=== PATIENT | female | born 1980 | race Caucasian/White ===

== ENCOUNTER 2017-04-17 08:34 | Day surgery (SDC) | payer MEDICAID ==
[2017-04-17] MEDS ORDERED: SODIUM CHLORIDE 0.9% 1,000 ML IV ONE ×4 (08:50→13:30)
[2017-04-17] MEDS ORDERED: ONDANSETRON 4 MG/2 ML VIAL IVP STA (08:50)
[2017-04-17] MEDS ORDERED: PANTOPRAZOLE 40 MG VIAL IVP STA (08:50)
--- NOTE | 2017-04-17 09:07 | ED Physician Documentation ---
History of Present Illness - Stated complaint Stated Complaint: NAUSEA,VOMITTING W/BLOOD,ABD PX - Chief complaint Chief Complaint: Abd Pain - History obtained from History obtained from: Patient - History of Present Illness Timing: Last night Improved by: nothing Worsened by: eating - Additonal information Additional information: States sudden onset of vomiting last night. Started upper abdomen and has moved to the lower abdomen. States pink tinge to vomit last night. States history of gastritis and was on omeprazole, but made her lightheaded, so she stopped it. Had diarrhea 2 days ago. no BM since. no abd surgeries. no possibility of . Review of Systems Ten Systems: 10 systems reviewed and negative Constitutional: reports: Fever (subjective last night) Nose: reports: Rhinorrhea / runny nose, Congestion Throat: denies: Sore throat Cardiac: denies: Chest pain / pressure Respiratory: reports: Cough (mild, dry) GI: reports: Nausea, Vomiting, Diarrhea Skin: denies: Rash Musculoskeletal: denies: Neck pain, Back pain Neurologic: denies: Focal weakness, Numbness, Headache PD PAST MEDICAL HISTORY - Past Medical History Past Medical History: Yes GI: GERD Psych: Depression - Present Medications Home Medications: Ambulatory Orders Medication Instructions Recorded Confirmed ARIPiprazole [Abilify] 5 mg PO DAILY 04/17/17 04/17/17 Acetaminophen [Tylenol Extra 500 mg PO Q4H PRN 04/17/17 04/17/17 Strength] Calcium Carbonate [Tums (Calcium 500 - 1,000 mg PO Q4H PRN 04/17/17 04/17/17 Carbonate 500mg)] Ibuprofen [Motrin] 400 mg PO Q6H PRN 04/17/17 04/17/17 Sertraline [Zoloft] 50 mg PO DAILY 04/17/17 04/17/17 - Allergies Allergies/Adverse Reactions: Allergies Allergy/AdvReac Type Severity Reaction Status Date / Time omeprazole [From Prilosec] AdvReac Intermediate Dizziness Verified 04/17/17 12: 40 - Social History Does the pt smoke?: No Smoking Status: Never smoker PD ED PE NORMAL - Vitals Vital signs reviewed: Yes - General General: Alert and oriented X 3, No acute distress, Well developed/nourished - HEENT HEENT: Moist mucous membranes - Neck Neck: Supple, no meningeal sign - Cardiac Cardiac: RRR - Respiratory Respiratory: No respiratory distress, Clear bilaterally - Abdomen Abdomen: Soft, Other (TTP RLQ at mcburney's point. + rebound and guarding. ) - Back Back: No CVA TTP, No spinal TTP - Derm Derm: Warm and dry - Neuro Neuro: Alert and oriented X 3 - Psych Psych: Normal mood, Normal affect Results - Vitals Vitals: Vital Signs - 24 hr 04/17/17 04/17/17 04/17/17 08:46 11:30 14:23 Temperature 37.2 C 37.1 C Heart Rate 102 H 87 Respiratory 14 16 Rate Blood Pressure 110/75 100/58 L Blood Pressure [Left Brachial artery] O2 Saturation 100 100 100 04/17/17 04/17/17 04/17/17 14:30 14:35 14:40 Temperature Heart Rate Respiratory Rate Blood Pressure Blood Pressure [Left Brachial artery] O2 Saturation 98 100 100 04/17/17 04/17/17 04/17/17 14:45 15:01 15:10 Temperature 36.7 C Heart Rate 85 Respiratory 16 Rate Blood Pressure Blood Pressure 125/52 L [Left Brachial artery] O2 Saturation 98 10 L 100 Oxygen O2 Source Room air - Labs Labs: Laboratory Tests 04/17/17 04/17/17 04/17/17 08:59 08:59 08:59 WBC 12.3 H RBC 4.25 Hgb 12.9 Hct 38.7 MCV 91.0 MCH 30.5 MCHC 33.5 RDW 12.6 Plt Count 261 MPV 7.5 L Neut # 9.9 H Lymph # 1.6 [place] # 0.7 Eos # 0.0 Baso # 0.0 Absolute Nucleated RBC 0.00 Nucleated RBC % 0.0 PT 12.5 INR 1.1 APTT 25.8 Sodium 136 Potassium 3.5 Chloride 101 Carbon Dioxide 26 Anion Gap 9.0 BUN 10 Creatinine 0.7 Estimated GFR (MDRD) 94 Glucose 111 H Calcium 9.4 Total Bilirubin 0.7 AST 17 ALT 11 Alkaline Phosphatase 40 L Total Protein 8.3 H Albumin 4.8 Globulin 3.5 Albumin/Globulin Ratio 1.4 Lipase 21 L Serum HCG, Qual Blood Type Antibody Screen 04/17/17 04/17/17 09:09 09:09 WBC RBC Hgb Hct MCV MCH MCHC RDW Plt Count MPV Neut # Lymph # [place] # Eos # Baso # Absolute Nucleated RBC Nucleated RBC % PT INR APTT Sodium Potassium Chloride Carbon Dioxide Anion Gap BUN Creatinine Estimated GFR (MDRD) Glucose Calcium Total Bilirubin AST ALT Alkaline Phosphatase Total Protein Albumin Globulin Albumin/Globulin Ratio Lipase Serum HCG, Qual NEGATIVE Blood Type B NEGATIVE Antibody Screen NEGATIVE - Rads (name of study) CT abd/pelvis Radiology: Prelim report reviewed, EMP read contemporaneously, See rad report ( acute appendicitis) PD MEDICAL DECISION MAKING - ED course Complexity details: reviewed results, re-evaluated patient, considered differential, d/w patient, d/w hematology oncology consultant ED course: Patient is a 37-year-old female who is found to have acute appendicitis. Given IV antibiotics in the emergency department and discussed the case with Dr. Suresh, general surgery on-call who will take the patient to the operating room. She has been n.p.o. since last night. Pain well controlled. This document was made in part using voice recognition software. While efforts are made to proofread this document, sound alike and grammatical errors may occur. Departure - Departure Disposition: ED Transfer to [facility] Clinical Impression: Appendicitis Qualifiers: Appendicitis type: acute appendicitis Acute appendicitis type: with localized peritonitis Qualified Code(s): K35.3 - Acute appendicitis with localized peritonitis Condition: Stable Discharge Date/Time: 04/17/17 13:08
[2017-04-17] MEDS ORDERED: ACETAMINOPHEN 1,000 MG/100 ML 100 ML IV STA (09:19)
[2017-04-17 09:20] LABS: BASOPHILS % (AUTO) 0.1 %; EOSINOPHILS % (AUTO) 0.3 %; HGB - HEMOGLOBIN 12.9 g/dL (12.0-16.0); LYMPHOCYTES # (AUTO) 1.6 10^3/uL (1.5-3.5); LYMPHOCYTES % (AUTO) 13.3 %; MEAN CORPUSCULAR HEMOGLOBIN 30.5 pg (27.0-31.0); MEAN CORPUSCULAR HGB CONC 33.5 g/dL (32.0-36.0); MEAN PLATELET VOLUME 7.5 fL (7.9-10.8); MONOCYTES # (AUTO) 0.7 10^3/uL (0.0-1.0); MONOCYTES % (AUTO) 5.4 %; NEUTROPHILS # (AUTO) 9.9 10^3/uL (1.5-6.6); NEUTROPHILS % (AUTO) 80.9 %; PLT - PLATELET COUNT 261 10^3/uL (130-450); RED BLOOD COUNT 4.25 10^6/uL (4.20-5.40); RED CELL DISTRIBUTION WIDTH 12.6 % (12.0-15.0); WHITE BLOOD COUNT 12.3 x10^3/uL (4.8-10.8)
[2017-04-17 09:26] LABS: INR 1.1 (0.8-1.2); PT - PROTHROMBIN TIME 12.5 secs (9.9-12.6)
[2017-04-17 09:36] LABS: ALBUMIN 4.8 g/dL (3.2-5.5); ALBUMIN/GLOBULIN RATIO 1.4 (1.0-2.2); BILIRUBIN,TOTAL 0.7 mg/dL (0.2-1.0); CALCIUM 9.4 mg/dL (8.5-10.3); CREATININE 0.7 mg/dL (0.4-1.0); TOTAL PROTEIN 8.3 g/dL (6.7-8.2)
[2017-04-17] MEDS ORDERED: IOPAMIDOL-300 100 ML VIAL ONE (10:07)
[2017-04-17 10:29] LABS: HCG,QUALITATIVE BLOOD NEGATIVE
[2017-04-17] MEDS ORDERED: IOPAMIDOL-300 100 ML VIAL IVP ONE (10:59)
--- NOTE | 2017-04-17 11:06 | CT Report ---
EXAM: CT ABDOMEN AND PELVIS EXAM DATE: 04/17/2017 10:59 AM. CLINICAL HISTORY: RLQ abd pain. COMPARISONS: None. TECHNIQUE: Routine helical CT imaging was performed through the abdomen and pelvis. IV contrast: ISOV UE 300 100mL. Enteric contrast: No. Reconstructions: Coronal and sagittal. In accordance with CT protocol optimization, one or more of the following dose reduction techniques w ere utilized for this exam: automated exposure control, adjustment of mA and/or KV based on patient s ize, or use of iterative reconstructive technique. FINDINGS: Lung Bases: Unremarkable. Liver: Approximately 2 low-attenuation hepatic lesions are seen in the liver the largest measuring 4 mm, too small to characterize. Patent portal vein. Gallbladder/Bile Ducts: Unremarkable. Spleen: Normal. Pancreas: Normal. Adrenal Glands: Normal. Kidneys: Normal. No masses or hydronephrosis. Peritoneal Cavity/Bowel: Stomach is nondistended. No small bowel obstruction or small bowel wall thic kening. Small to moderate volume of stool is seen in the colon. No diverticulitis. Appendix is enlarg ed with diffuse appendiceal wall enhancement. The appendix measures up to 9-10 mm distally. There per iappendiceal edema. No evidence of periappendiceal abscess or free air. Pelvic Organs: Small volume of pelvic free fluid. Enhancing right ovarian 2.1 cm lesion which may be seen with a corpus luteal cyst. Prominent left greater than right periuterine vessels which coalesce with the left gonadal vein which is enlarged measuring up to 9-10 mm. No pelvic adenopathy. Urinary b ladder is unremarkable. Vasculature: No aneurysms or other significant abnormality. Bones: No significant abnormality. Other: None. IMPRESSION: 1. Acute appendicitis. No evidence of periappendiceal abscess or free air. 2. Hepatic low-attenuation lesions, too small to characterize although typically seen with cysts. 3. Right ovarian 2.1 cm lesion typically represents a corpus luteal cyst. Prominent left greater than right periuterine vessels with a left periuterine vessel coalescing with a dilated left gonadal vein . [facility] Referring Provider Line: [phone] SITE ID: [id number]
[2017-04-17] MEDS ORDERED: cefOXitin 2 GM in SODIUM CHLORIDE 0.9% MINIBAG 100 ML IV STA (11:09)
[2017-04-17] MEDS ORDERED: BUPIVACAINE 0.25% PF 30 ML VIAL ONE (12:45)
[2017-04-17] MEDS ORDERED: BUPIVACAINE 0.25% PF 30 ML VIAL SUBQ ONE ×2 (13:38)
[2017-04-17] MEDS ORDERED: ACETAMINOPHEN 1,000 MG/100 ML 100 ML IV ONE ×2 (14:18→14:32)
[2017-04-17] MEDS ORDERED: PROPOFOL 200 MG/20 ML VIAL IVP ONE (14:32)
[2017-04-17] MEDS ORDERED: fentaNYL 100 MCG/2 ML VIAL IVP ONE (14:32)
[2017-04-17] MEDS ORDERED: ePHEDrine 50 MG/ML VIAL IVP ONE (14:32)
[2017-04-17] MEDS ORDERED: LIDOCAINE-MPF 2% 5 ML VIAL IM ONE (14:32)
[2017-04-17] MEDS ORDERED: ROCURONIUM 50 MG/5 ML VIAL IVP ONE (14:32)
[2017-04-17] MEDS: HYDROmorphone 1 MG/ML SYRINGE ONE ×5 (14:35→14:56)
[2017-04-17] MEDS ORDERED: KETOROLAC 30 MG/ML VIAL ONE (14:41)
[2017-04-17] MEDS ORDERED: ONDANSETRON 4 MG/2 ML VIAL ONE (15:26)
[2017-04-17] MEDS ORDERED: LACTATED RINGERS 1,000 ML IV ONE (15:50)
[2017-04-17 16:13] VITALS: BP 138/70
[2017-04-17] MEDS ORDERED: ONDANSETRON 4 MG/2 ML VIAL IVP PRN ×2 (16:30→21:00)
[2017-04-17] MEDS ORDERED: HYDROcod/ACETAM 5/325 MG TABLET PO PRN (16:31)
[2017-04-17] MEDS ORDERED: HYDROmorphone 1 MG/ML SYRINGE IVP PRN (16:32)
[2017-04-17] MEDS ORDERED: LACTATED RINGERS 1,000 ML IV SCH (17:00)
--- NOTE | 2017-04-17 20:25 | OPERATIVE REPORT ---
DATE OF SERVICE: 04/17/2017 Physician: Harjit Suresh MD PREOPERATIVE DIAGNOSIS: Acute appendicitis. POSTOPERATIVE DIAGNOSIS: Acute appendicitis. OPERATION: Laparoscopic appendectomy. OPERATING SURGEON: Harjit Suresh MD ANESTHESIA: General. INDICATIONS FOR PROCEDURE: The patient is a 37-year-old female who presents with pain in the right lower quadrant starting the night before. Because of the pain, she came to the emergency room. She had a CT scan of the abdomen and pelvis, which was consistent with acute appendicitis. FINDINGS AT SURGERY: The patient had acute appendicitis that was nonruptured. PROCEDURE: After informed consent was obtained, the patient was taken to the operating room and placed in supine position. General endotracheal anesthesia was administered. Prior to making any abdominal incision, the skin was injected with local anesthesia. An infraumbilical incision was made in the skin using a scalpel. A 5 mm Optiview trocar was then inserted through the incision through the fascia and into the abdominal cavity under direct vision. The abdomen was then insufflated. Looking inside, no injuries were noted. A 5 mm port was placed in the right and left lower quadrants, with a 5 mm port at the umbilical area being switched to a 12 mm port under direct vision. The patient had acutely inflamed appendix. An opening was then made in the mesentery of the appendix at its base. An Endo-MACARENA was then placed across the base of the appendix stapling and dividing it. A Harmonic scalpel was then used to divide the mesentery of the appendix. The appendix was then placed in an Endobag and removed through the umbilical port. Looking in right lower quadrant, no bleeding was noted. The ports were then removed. No bleeding was noted at the port sites with the abdomen then being desufflated. The umbilical fascial defect was then closed using #0 Vicryl suture. Skin incisions were closed using 4-0 Monocryl subcuticular stitch. Dermabond was then applied to the incision sites. The patient was then awakened, extubated, and taken from the operating room in stable condition. ESTIMATED BLOOD LOSS: 5 mL COMPLICATIONS: None. CONDITION OF THE PATIENT AT END OF PROCEDURE: Stable. SPECIMENS: Appendix. DRAINS OR PACKS: None. CLASSIFICATION OF WOUND: Clean, contaminated. TD: 04/17/2017 20:24
== END 2017-04-17 22:00 | disposition home or self-care (01) ==
LOC: ED 08:34 → SDS 12:00 → OBS 15:45 → SDS 22:00
PROVIDERS: ATTEND Surgery
PROC: 0DTJ4ZZ Resection of Appendix, Percutaneous Endoscopic Approach (ICD-10-PCS; principal; 2017-04-17 13:00)
DX: K35.80 Unspecified acute appendicitis (principal); K21.9 Gastro-esophageal reflux disease without esophagitis; F32.9 Major depressive disorder, single episode, unspecified
CPT/HCPCS: 36415; 44970; 74177; 80053; 83690; 84703; 85025; 85610; 85730; 86850; 86900; 86901; 88304; 96365; 96366; 96367; 96375; 99283; 99285; A9270; J0131; J1170; J7120; Q9967; 99284